=== PATIENT | male | born 1975 | race African-American/Black ===

== ENCOUNTER 2018-12-26 16:48 | Emergency (ER) | payer OTHER ==
[~2018-12-26] VITALS: Ht 182.9 cm; Wt 147.4 kg
[~2018-12-26 16:48] MED LIST: PENICILLIN V P500 MG PO
[2018-12-26] MEDS ORDERED: FLONASE 0.05%50 MCG NASAL (16:54)
[2018-12-26] MEDS ORDERED: VENTOLIN HFA 1818 GM INH ×2 (16:54→17:50)
[2018-12-26] MEDS ORDERED: LOVASTATIN 20 M20 MG PO (16:57)
[2018-12-26] MEDS ORDERED: ZESTRIL40 MG PO (16:57)
[2018-12-26] MEDS ORDERED: GUAIFEN-CODEINE10 ML PO (17:50)
[2018-12-26 18:05] VITALS: BP 158/101
== END 2018-12-26 18:06 | disposition home or self-care (01) ==
LOC: ER 16:48
DX: J06.9 Acute upper respiratory infection, unspecified (principal); I10 Essential (primary) hypertension; E78.00 Pure hypercholesterolemia, unspecified

== ENCOUNTER 2019-10-17 20:14 | Emergency (ER) | payer OTHER ==
[~2019-10-17] VITALS: Ht 182.9 cm; Wt 154.2 kg
[~2019-10-17 20:14] MED LIST changes: +FLONASE 0.05%50 MCG NASAL; +GUAIFEN-CODEINE10 ML PO; +LOVASTATIN 20 M20 MG PO; +VENTOLIN HFA 1818 GM INH; +ZESTRIL40 MG PO
[2019-10-17] MEDS ORDERED: NOHOMEMEDICATIONS (21:28)
[2019-10-17] MEDS ORDERED: IBUPROFEN 600600 M1 PO (21:50)
[2019-10-17] MEDS ORDERED: AUGMENTIN 500-1 EACH PO (21:50)
[2019-10-17 22:07] VITALS: BP 151/78
== END 2019-10-17 22:07 | disposition home or self-care (01) ==
LOC: ER 20:14
DX: J06.9 Acute upper respiratory infection, unspecified (principal); H66.92 Otitis media, unspecified, left ear; I10 Essential (primary) hypertension; E78.00 Pure hypercholesterolemia, unspecified